=== PATIENT | male | born 1950 | race Caucasian/White ===

== ENCOUNTER → 2018-04-29 | Outpatient (CLI) | payer OTHER, MEDICARE | END | disposition home or self-care (01) | LOC: PCVCCLINIC 07:00 | PROVIDERS: ATTEND Internal Medicine Cardiovascular Disease | DX: I48.91 Unspecified atrial fibrillation (principal); E78.00 Pure hypercholesterolemia, unspecified; I10 Essential (primary) hypertension; R06.02 Shortness of breath; E11.9 Type 2 diabetes mellitus without complications; G47.33 Obstructive sleep apnea (adult) (pediatric); Z82.49 Family history of ischemic heart disease and other diseases of the circulatory system; Z79.84 Long term (current) use of oral hypoglycemic drugs; Z79.4 Long term (current) use of insulin | CPT/HCPCS: 93005; G0463 ==

== ENCOUNTER → 2018-04-30 | Outpatient (CLI) | payer OTHER, MEDICARE ==
--- NOTE | 2018-04-30 17:47 | PCVCIMAG ---
APPROVED REPORT Study performed: 04/30/2018 16:07:43 EXAM: Comprehensive 2D, Doppler, and color-flow Echocardiogram Patient Location: Echo lab Room #: 3Status: routine BSA: 2.48 HR: 73 bpmBP: 130/80 mmHg Rhythm: Atrial Fibrillation Other Information Study Quality: Fair Risk Factors: Cardiac Risk Factors: HTN, Hyperlipidemia, , DM Indications Diabetes Atrial Fibrillation CAD Hypertension/HDD 2D Dimensions LVEF(%): 73.71 (>50%) IVSd: 11.20 (7-11mm)LVOT Diam: 21.14 (18-24mm) LVDd: 46.45 mm PWd: 10.33 (7-11mm) LVDs: 26.66 (25-40mm) Left Atrium: 45.92 (27-40mm) Aortic Root: 31.48 mm LV Single Plane 4CH: 64.38 % LV Single Plane 2CH: 74.35 %Pierce's LVEF: 69.36 % Volumes Left Atrial Volume (Systole) Single Plane 4CH: 65.10 mLSingle Plane 2CH: 54.90 mL Biplane LA Volume: 70.00 mLLA ESV Index: 28.00 mL/m2 Aortic Valve AoV Peak Elver.: 1.21 m/s AO Peak Gr.: 7.30 mmHgLVOT Max P.84 mmHg LVOT Max V: 0.84 m/s STEFAN Vmax: 2.44 cm2 Mitral Valve MV E Max Elevr.: 0.81 m/s MV PHT: 29.90 ms MVA (PHT): 7.36 cm2 IVRT: 55.36 ms TDI E/Lateral E': 6.75E/Medial E': 11.57 Medial E' Elver.: 0.07 m/s Lateral E' Elver.: 0.12 m/s Pulmonary Valve PV Peak Elver.: 0.87 m/sPV Peak Gr.: 3.06 mmHg Tricuspid Valve TR Peak Elver.: 1.90 m/s TR Peak Gr.: 14.38 mmHg TV Vmax: 0.62 m/sPA Pressure: 21.00 mmHg Left Ventricle The left ventricle is normal size. There is normal LV segmental wall motion. There is normal left ventricular wall thickness. Left ventricular systolic function is normal. The left ventricular ejection fraction is within the normal range. LVEF is 65-70%. This study is not technically sufficient to allow evaluation of the LV diastolic function due to atrial fibrillation. Right Ventricle The right ventricle is normal size. The right ventricular systolic function is normal. Atria The left atrium size is normal. The right atrium size is normal. Aortic Valve Aortic valve is trileaflet. The Aortic valve is mildly sclerotic. Mild aortic regurgitation. There is no aortic valvular stenosis. Mitral Valve The mitral valve is normal in structure. Mild mitral regurgitation. No evidence of mitral valve stenosis. Tricuspid Valve The tricuspid valve is normal in structure. Mild tricuspid regurgitation with a PA pressure of 21 mmHg. Pulmonic Valve The pulmonary valve is normal in structure. There is no pulmonic valvular regurgitation. Great Vessels The aortic root is normal in size. Ascending aorta is not well visualized. IVC is normal in size and collapses with >50% inspiration Pericardium There is no pericardial effusion. There is no pleural effusion. <Conclusion> The left ventricle is normal size. LVEF is 65-70%. This study is not technically sufficient to allow evaluation of the LV diastolic function due to atrial fibrillation. The right ventricle is normal size. The left atrium size is normal. Aortic valve is trileaflet. The Aortic valve is mildly sclerotic. Mild mitral regurgitation. Mild tricuspid regurgitation with a PA pressure of 21 mmHg. The aortic root is normal in size. There is no pericardial effusion.
== END | disposition home or self-care (01) ==
LOC: PCVCINTER 04-29 08:00
PROVIDERS: ATTEND Internal Medicine Cardiovascular Disease
DX: I48.91 Unspecified atrial fibrillation (principal); I34.0 Nonrheumatic mitral (valve) insufficiency; I07.1 Rheumatic tricuspid insufficiency
CPT/HCPCS: 93306

== ENCOUNTER → 2018-06-18 | Outpatient (CLI) | payer OTHER, MEDICARE | END | disposition home or self-care (01) | LOC: PCVCCLINIC 12:51 | DX: I48.91 Unspecified atrial fibrillation (principal); E11.9 Type 2 diabetes mellitus without complications; I10 Essential (primary) hypertension; E78.00 Pure hypercholesterolemia, unspecified; D68.59 Other primary thrombophilia; G47.33 Obstructive sleep apnea (adult) (pediatric); R94.31 Abnormal electrocardiogram [ECG] [EKG]; Z79.4 Long term (current) use of insulin; Z79.899 Other long term (current) drug therapy | CPT/HCPCS: 93005; G0463 ==

== ENCOUNTER → 2019-02-12 | Outpatient (CLI) | payer OTHER, MEDICARE | END | disposition home or self-care (01) | LOC: PCVCCLINIC 11:07 | PROVIDERS: ATTEND Internal Medicine Cardiovascular Disease | DX: I48.2 Chronic atrial fibrillation (principal); I10 Essential (primary) hypertension; E78.00 Pure hypercholesterolemia, unspecified; G47.33 Obstructive sleep apnea (adult) (pediatric); E11.9 Type 2 diabetes mellitus without complications; Z79.84 Long term (current) use of oral hypoglycemic drugs; Z82.49 Family history of ischemic heart disease and other diseases of the circulatory system | CPT/HCPCS: 36415; 80061; 93005; G0463 ==

== ENCOUNTER → 2019-09-16 | Outpatient (CLI) | payer OTHER, MEDICARE | END | disposition home or self-care (01) | LOC: PCVCCLINIC 13:50 | PROVIDERS: ATTEND Internal Medicine Cardiovascular Disease | DX: I48.21 Permanent atrial fibrillation (principal); E78.00 Pure hypercholesterolemia, unspecified; I10 Essential (primary) hypertension; G47.33 Obstructive sleep apnea (adult) (pediatric); E11.9 Type 2 diabetes mellitus without complications; D68.59 Other primary thrombophilia; Z79.4 Long term (current) use of insulin; Z79.899 Other long term (current) drug therapy; Z79.84 Long term (current) use of oral hypoglycemic drugs | CPT/HCPCS: 36415; 80061; 93005; G0463 ==